=== PATIENT | male | born 1995 | race Asian ===

== ENCOUNTER 2017-09-04 14:23 | Emergency (ER) | payer OTHER ==
--- NOTE | 2017-09-04 15:08 | EDPHY ---
H & P Stated Complaint: hemmroids Time Seen by Provider: 09/04/17 14:44 HPI/ROS: CHIEF COMPLAINT: "I think I have a hemorrhoid" HISTORY OF PRESENT ILLNESS: 22-year-old male complaining of pain with defecation, felt a lump in his perianal region,, concerned about possible hemorrhoid. Present for the past 2 days. No foreign body insertion. No fever chills. No nausea or vomiting. PHYSICAL EXAM (Prior to examination, patient consented to physical exam, hands were washed and my usual and customary physical exam procedures followed) 1) GENERAL: Well-developed, well-nourished, alert and oriented. Appears to be in no acute distress. 2) HEAD: Normocephalic 3) HEENT: sclera anicteric 4) LUNGS: Breathing comfortably. [5) : Patient has a thrombosed hemorrhoid at the 7 o'clock position. There is no evidence of perianal cellulitis or abscess. Perineum is unremarkable. - Medical/Surgical History Hx Asthma: No Hx Chronic Respiratory Disease: No Hx Diabetes: No Hx Cardiac Disease: No Hx Renal Disease: No Hx Cirrhosis: No Hx Alcoholism: No Hx HIV/AIDS: No Hx Splenectomy or Spleen Trauma: No Other PMH: Denies - Social History Smoking Status: Current every day smoker Constitutional: Initial Vital Signs Temperature (C) 36.6 C 09/04/17 14:31 Heart Rate 111 H 09/04/17 14:31 Respiratory Rate 18 09/04/17 14:31 Blood Pressure 120/84 H 09/04/17 14:31 O2 Sat (%) 96 09/04/17 14:31 O2 Delivery Mode Room Air Allergies/Adverse Reactions: No Known Allergies Allergy (Verified 09/04/17 14:30) Home Medications: Medication Instructions Recorded Hydrocortisone Acetate [Anucort-Hc] 25 mg RC Q6 #15 supp.rect 09/04/17 Medical Decision Making Procedures: Procedure: Excision of thrombosed hemorrhoid Indication: Thrombosed hemorrhoid Indications risks benefits of procedure and medication discussed with patient he consents. The patient's perianal hair had to be trimmed by myself, area was cleansed prepped draped using usual sterile technique by myself. 1% lidocaine with epinephrine placed into the thrombosed hemorrhoid, an incision was made and a thrombus was easily removed by myself. Patient tolerated procedure well. ED Course/Re-evaluation: Patient had a thrombosed hemorrhoid which is removed in the emergency department. We discussed usual and customary hemorrhoid precautions instructions, we discussed the importance of follow-up. He is discharged with recommendations for Sitz baths, Anucort. General surgery follow-up information provided. He feels comfortable being discharged. I saw this patient independently based on established practice protocols. Care of patient under supervision of secondary supervising physician Dr Mejia Piña . Departure - Departure Disposition: Home, Routine, Self-Care Clinical Impression: Thrombosed external hemorrhoid Condition: Good Instructions: Thrombosed Hemorrhoid (ED) Additional Instructions: Return to the emergency department she develop fever, chills, nausea, vomiting or any other symptoms that concern you Referrals: Mu Mon MD [Medical Doctor] - 2-3 days, call for appt. Prescriptions: Hydrocortisone Acetate [Anucort-Hc] 25 mg RC Q6 #15 supp.rect
[2017-09-04 15:29] VITALS: BP 116/82
== END 2017-09-04 15:28 | disposition home or self-care (01) ==
PROC: 06BY0ZC Excision of Hemorrhoidal Plexus, Open Approach (ICD-10-PCS; principal; 2017-09-04)
DX: K64.5 Perianal venous thrombosis (principal); F17.200 Nicotine dependence, unspecified, uncomplicated